=== PATIENT | female | born 1995 | race Hispanic/Latino ===

== ENCOUNTER 2020-10-22 21:42 | Emergency (ER) | payer BC, OTHER ==
[2020-10-22] MEDS ORDERED: IBUPROFEN 600 MG TABLET ONE (22:22)
[2020-10-22] MEDS ORDERED: ACETAMINOPHEN 325 MG TAB ONE (22:22)
[2020-10-22 22:30] LABS: BASOPHILS % (AUTO) 0.4 % (0.0-5.0); EOSINOPHILS % (AUTO) 0.6 % (0.0-8.0); HEMATOCRIT 41.5 % (36-48); LYMPHOCYTES % (AUTO) 33.5 % (21.0-51.0); MEAN CORPUSCULAR HEMOGLOBIN 28.3 pg (27.0-33.0); MEAN CORPUSCULAR HGB CONC 32.5 g/dL (32.0-36.0); MONOCYTES % (AUTO) 4.7 % (3.0-13.0); NEUTROPHILS % (AUTO) 60.4 % (40.0-77.0); PLATELET COUNT (AUTO) 328 K/uL (130-400); RED BLOOD CELL COUNT(AUTO) 4.77 MIL/uL (4.00-5.50)
[2020-10-22 22:33] LABS: APPEARANCE,URINE Clear (CLEAR); BILIRUBIN,URINE Negative (NEGATIVE); COLOR,URINE Yellow (YELLOW); GLUCOSE, URINE (UA) Negative (NEGATIVE); KETONES,URINE Negative (NEGATIVE); LEUKOCYTE ESTERASE ,URINE Negative (NEGATIVE); NITRATE,URINE Negative (NEGATIVE); OCCULT BLOOD,URINE Negative (NEGATIVE); PH,URINE 6.5 (5.0-8.0); PROTEIN,URINE Negative (NEGATIVE)
[2020-10-22 22:35] LABS: HCG,QUAL RESULT NEGATIVE (NEGATIVE)
[2020-10-22 22:40] LABS: CREATININE 0.8 mg/dL (0.5-1.5); POTASSIUM 3.7 mmol/L (3.5-5.1)
== END 2020-10-22 23:42 | disposition home or self-care (01) ==
LOC: EDH 21:42
DX: U07.1 COVID-19 (principal); R06.02 Shortness of breath; Z87.891 Personal history of nicotine dependence
CPT/HCPCS: 36415; 71045; 80048; 81003; 81025; 85025

== ENCOUNTER 2020-11-08 07:48 | Emergency (ER) | payer BC | END 2020-11-08 08:15 | disposition home or self-care (01) | LOC: EDH 07:48 | DX: R07.89 Other chest pain (principal); Z86.19 Personal history of other infectious and parasitic diseases | CPT/HCPCS: 99281 ==

== ENCOUNTER 2020-11-15 08:19 | Emergency (ER) | payer BC ==
[2020-11-15 08:44] LABS: APPEARANCE,URINE Clear (CLEAR); BILIRUBIN,URINE Negative (NEGATIVE); COLOR,URINE Yellow (YELLOW); GLUCOSE, URINE (UA) Negative (NEGATIVE); KETONES,URINE 15 mg/dL (NEGATIVE); LEUKOCYTE ESTERASE ,URINE Negative (NEGATIVE); NITRATE,URINE Negative (NEGATIVE); OCCULT BLOOD,URINE Negative (NEGATIVE); PROTEIN,URINE Negative (NEGATIVE); UROBILINOGEN,URINE 0.2 mg/dL (0.2-1.0)
[2020-11-15 09:00] LABS: BACTERIA,URINE Moderate /HPF (None Seen); RBC,URINE 0-1 /HPF (0-1); WBC,URINE 0-1 /HPF (0-1)
[2020-11-15] MEDS ORDERED: METHYLPREDNISOLONE SOD SUCC 125MG/2ML VIAL ONE (09:42)
== END 2020-11-15 10:52 | disposition home or self-care (01) ==
LOC: EDH 08:19
DX: M54.2 Cervicalgia (principal)
CPT/HCPCS: 71045; 81001; 87088; 96372; 99284; J2930

== ENCOUNTER 2020-11-23 17:47 | Emergency (ER) | payer BC ==
[2020-11-23] MEDS ORDERED: HYDROXYZINE HCL 25 MG TABLET ONE (18:28)
== END 2020-11-23 18:35 | disposition home or self-care (01) ==
LOC: EDH 17:47
DX: H81.399 Other peripheral vertigo, unspecified ear (principal); Z87.891 Personal history of nicotine dependence

== ENCOUNTER 2022-03-22 18:18 | Emergency (ER) | payer BC, OTHER ==
[~2022-03-22] VITALS: Ht 149.9 cm; Wt 72.6 kg
[2022-03-22 18:53] LABS: APPEARANCE,URINE Clear (CLEAR); BILIRUBIN,URINE Negative (NEGATIVE); COLOR,URINE Yellow (YELLOW); GLUCOSE, URINE (UA) Negative (NEGATIVE); KETONES,URINE 40 mg/dL (NEGATIVE); LEUKOCYTE ESTERASE ,URINE Negative (NEGATIVE); NITRATE,URINE Negative (NEGATIVE); OCCULT BLOOD,URINE Negative (NEGATIVE); PH,URINE 7.5 (5.0-8.0); PROTEIN,URINE Negative (NEGATIVE); UROBILINOGEN,URINE 0.2 mg/dL (0.2-1.0)
[2022-03-22 18:56] LABS: HCG,QUAL RESULT NEGATIVE (NEGATIVE)
[2022-03-22] MEDS ORDERED: ONDANSETRON ODT 4MG TAB SL ONE (19:00)
[2022-03-22] MEDS ORDERED: ONDANSETRON ODT 4MG TAB ONE (19:23)
[2022-03-22 19:24] LABS: BASOPHILS % (AUTO) 0.5 % (0.0-5.0); EOSINOPHILS % (AUTO) 1.5 % (0.0-8.0); HEMATOCRIT 43.5 % (36-48); LYMPHOCYTES % (AUTO) 32.9 % (21.0-51.0); MEAN CORPUSCULAR HEMOGLOBIN 28.4 pg (27.0-33.0); MEAN CORPUSCULAR HGB CONC 32.4 g/dL (32.0-36.0); MEAN CORPUSCULAR VOLUME 87.7 fL (79-99); MONOCYTES % (AUTO) 4.3 % (3.0-13.0); NEUTROPHILS % (AUTO) 60.5 % (40.0-77.0); PLATELET COUNT (AUTO) 343 K/uL (130-400); RED BLOOD CELL COUNT(AUTO) 4.96 MIL/uL (4.00-5.50); RED CELL DISTRIBUTION WIDTH 13.6 % (11.0-15.5)
[2022-03-22] MEDS ORDERED: 0.9%NACL 1000ML 1,000 ML IV SCH (19:30)
[2022-03-22 19:32] LABS: POTASSIUM 3.4 mmol/L (3.5-5.1)
[2022-03-22 19:36] LABS: ALBUMIN 4.4 g/dL (3.5-5.0); BILIRUBIN,TOTAL 0.4 mg/dL (0.2-1.0); TOTAL PROTEIN, SERUM 8.6 g/dL (6.0-8.3)
[2022-03-22] MEDS ORDERED: ONDA4TAB10 PO (20:27)
[2022-03-22 21:00] VITALS: BP 124/77
== END 2022-03-22 21:11 | disposition home or self-care (01) ==
LOC: EDH 18:18
DX: A08.4 Viral intestinal infection, unspecified (principal); E86.0 Dehydration; I95.1 Orthostatic hypotension
CPT/HCPCS: 36415; 80053; 81003; 81025; 85025; 96360; 96361

== ENCOUNTER 2022-04-20 15:18 | Emergency (ER) | payer OTHER ==
[~2022-04-20] VITALS: Ht 149.9 cm; Wt 122.5 kg
[~2022-04-20 15:18] MED LIST: ONDA4TAB10 PO
[2022-04-20] MEDS ORDERED: ONDANSETRON ODT 4MG TAB SL ONE (16:00)
[2022-04-20] MEDS ORDERED: KETOROLAC 60 MG VIAL (30MG/ML) IM ONE (16:00)
[2022-04-20] MEDS ORDERED: FIORIT PO (17:38)
[2022-04-20 17:54] VITALS: BP 136/90
== END 2022-04-20 17:55 | disposition home or self-care (01) ==
LOC: EDH 15:18
DX: R51.9 Headache, unspecified (principal); R42 Dizziness and giddiness; K21.9 Gastro-esophageal reflux disease without esophagitis; Z79.1 Long term (current) use of non-steroidal anti-inflammatories (NSAID); Z79.899 Other long term (current) drug therapy
CPT/HCPCS: 70450; 81025; 96372; 99284; J1885

== ENCOUNTER 2023-03-10 06:31 | Emergency (ER) | payer OTHER ==
[~2023-03-10] VITALS: Ht 152.4 cm; Wt 81.2 kg
[~2023-03-10 06:31] MED LIST changes: +FIORIT PO
[2023-03-10 07:12] LABS: APPEARANCE,URINE CLOUDY (CLEAR); BILIRUBIN,URINE NEGATIVE (NEGATIVE); COLOR,URINE YELLOW (YELLOW); GLUCOSE, URINE (UA) NEGATIVE (NEGATIVE); KETONES,URINE NEGATIVE (NEGATIVE); LEUKOCYTE ESTERASE ,URINE 250 Leu/uL (NEGATIVE); NITRATE,URINE NEGATIVE (NEGATIVE); OCCULT BLOOD,URINE LARGE (NEGATIVE); PH,URINE 5.5 (5.0-8.0); PROTEIN,URINE 70 mg/dL (NEGATIVE); UROBILINOGEN,URINE 0.2 mg/dL (0.2-1.0)
[2023-03-10 07:31] LABS: BACTERIA,URINE MOD /HPF (None Seen); MUCUS,URINE RARE LPF (None Seen); RBC,URINE TNTC /HPF (0-1); SQUAMOUS EPITHELIAL CELL,UR FEW /HPF (0-2); TRANSITIONAL EPI CELLS,URINE FEW /HPF (None Seen); WBC,URINE >100 /HPF (0-1)
[2023-03-10 08:12] VITALS: BP 124/71
[2023-03-10] MEDS ORDERED: PHEN-847 PO (08:28)
[2023-03-10] MEDS ORDERED: MACR100 PO (08:28)
[2023-03-10] MEDS ORDERED: NITROFURANTOIN MONOHYD/M-CRYST 100 MG CAPSULE PO ONE (08:30)
[2023-03-10] MEDS ORDERED: PHENAZOPYRIDINE HCL 200 MG TABLET PO ONE (08:30)
== END 2023-03-10 08:43 | disposition home or self-care (01) ==
LOC: EDH 06:31
DX: N30.01 Acute cystitis with hematuria (principal)
CPT/HCPCS: 81001; 81025; 87077; 87088; 87186

== ENCOUNTER 2024-05-06 08:26 | Emergency (ER) | payer BC ==
[~2024-05-06] VITALS: Ht 152.4 cm; Wt 83.0 kg
[~2024-05-06 08:26] MED LIST changes: +MACR100 PO; +ONDA-243 PO; -ONDA4TAB10 PO; +PHEN-847 PO
[2024-05-06 09:05] LABS: BASOPHILS # (AUTO) 0.03 K/uL (0.00-0.20); BASOPHILS % (AUTO) 0.4 % (0.0-5.0); EOSINOPHILS % (AUTO) 1.5 % (0.0-8.0); HEMATOCRIT 40.5 % (36-48); IMMATURE GRANULOCYTE ABSOLUTE 0.02 K/uL (0-1); LYMPHOCYTES # (AUTO) 1.3 K/uL (1.0-4.8); LYMPHOCYTES % (AUTO) 18.8 % (21.0-51.0); MEAN CORPUSCULAR HEMOGLOBIN 28.6 pg (27.0-33.0); MEAN CORPUSCULAR HGB CONC 33.6 g/dL (32.0-36.0); MEAN CORPUSCULAR VOLUME 85.1 fL (79-99); MONOCYTES # (AUTO) 0.2 K/uL (0.1-1.0); MONOCYTES % (AUTO) 3.1 % (3.0-13.0); NEUTROPHILS # (AUTO) 5.1 K/uL (1.8-7.7); NEUTROPHILS % (AUTO) 75.9 % (40.0-77.0); PLATELET COUNT (AUTO) 326 K/uL (130-400); RED BLOOD CELL COUNT(AUTO) 4.76 MIL/uL (4.00-5.50); WHITE BLOOD COUNT (AUTO) 6.7 K/uL (4.8-10.8)
[2024-05-06 09:10] LABS: APPEARANCE,URINE CLEAR (CLEAR); BILIRUBIN,URINE NEGATIVE (NEGATIVE); COLOR,URINE COLORLESS (YELLOW); GLUCOSE, URINE (UA) NEGATIVE (NEGATIVE); KETONES,URINE NEGATIVE (NEGATIVE); LEUKOCYTE ESTERASE ,URINE NEGATIVE Leu/uL (NEGATIVE); NITRATE,URINE NEGATIVE (NEGATIVE); OCCULT BLOOD,URINE NEGATIVE (NEGATIVE); PH,URINE 7.5 (5.0-8.0); PROTEIN,URINE NEGATIVE (NEGATIVE); UROBILINOGEN,URINE 0.2 mg/dL (0.2-1.0)
[2024-05-06 09:13] LABS: CREATININE 0.8 mg/dL (0.5-1.0); POTASSIUM 3.9 mmol/L (3.5-5.1)
[2024-05-06 09:14] LABS: ADD UA MICROSCOPIC NO; HCG,QUALITATIVE URINE NEGATIVE (NEGATIVE)
[2024-05-06 09:18] LABS: ALBUMIN 3.9 g/dL (3.5-5.0); BILIRUBIN,TOTAL 0.3 mg/dL (0.2-1.0); TOTAL PROTEIN, SERUM 7.6 g/dL (6.0-8.3)
[2024-05-06] MEDS ORDERED: FLUT9.9S NS (10:37)
[2024-05-06 10:41] VITALS: BP 128/81; PULSE 87; RESP 18; O2SAT 99
== END 2024-05-06 10:50 | disposition home or self-care (01) ==
LOC: EDH 08:26
DX: J30.9 Allergic rhinitis, unspecified (principal); E86.0 Dehydration; R73.9 Hyperglycemia, unspecified; F41.9 Anxiety disorder, unspecified; K21.9 Gastro-esophageal reflux disease without esophagitis; Z79.899 Other long term (current) drug therapy; Z98.890 Other specified postprocedural states
CPT/HCPCS: 36415; 80053; 81003; 81025; 85025

== ENCOUNTER 2024-07-17 16:24 | Emergency (ER) | payer BC ==
[~2024-07-17] VITALS: Ht 152.4 cm; Wt 81.6 kg
[~2024-07-17 16:24] MED LIST changes: +FLUT9.9S NS
[2024-07-17 16:58] LABS: BASOPHILS # (AUTO) 0.05 K/uL (0.00-0.20); BASOPHILS % (AUTO) 0.6 % (0.0-5.0); EOSINOPHILS % (AUTO) 3.4 % (0.0-8.0); HEMATOCRIT 44.3 % (36-48); IMMATURE GRANULOCYTE ABSOLUTE 0.02 K/uL (0-1); LYMPHOCYTES # (AUTO) 2.6 K/uL (1.0-4.8); LYMPHOCYTES % (AUTO) 28.5 % (21.0-51.0); MEAN CORPUSCULAR HEMOGLOBIN 28.3 pg (27.0-33.0); MEAN CORPUSCULAR HGB CONC 31.8 g/dL (32.0-36.0); MEAN CORPUSCULAR VOLUME 88.8 fL (79-99); MONOCYTES # (AUTO) 0.4 K/uL (0.1-1.0); MONOCYTES % (AUTO) 4.7 % (3.0-13.0); NEUTROPHILS # (AUTO) 5.6 K/uL (1.8-7.7); NEUTROPHILS % (AUTO) 62.6 % (40.0-77.0); PLATELET COUNT (AUTO) 321 K/uL (130-400); RED BLOOD CELL COUNT(AUTO) 4.99 MIL/uL (4.00-5.50); RED CELL DISTRIBUTION WIDTH 12.5 % (11.0-15.5); WHITE BLOOD COUNT (AUTO) 8.9 K/uL (4.8-10.8)
[2024-07-17 16:59] LABS: APPEARANCE,URINE CLEAR (CLEAR); BILIRUBIN,URINE NEGATIVE (NEGATIVE); COLOR,URINE YELLOW (YELLOW); GLUCOSE, URINE (UA) NEGATIVE (NEGATIVE); KETONES,URINE 5 mg/dL (NEGATIVE); LEUKOCYTE ESTERASE ,URINE NEGATIVE Leu/uL (NEGATIVE); NITRATE,URINE NEGATIVE (NEGATIVE); PH,URINE 5.5 (5.0-8.0); PROTEIN,URINE 10 mg/dL (NEGATIVE); UROBILINOGEN,URINE 0.2 mg/dL (0.2-1.0)
[2024-07-17 17:01] LABS: ADD UA MICROSCOPIC YES
[2024-07-17 17:06] LABS: BACTERIA,URINE RARE /HPF (None Seen); MUCUS,URINE RARE LPF (None Seen); SQUAMOUS EPITHELIAL CELL,UR FEW /HPF (0-2); UNCLASSIFIED CRYSTAL 1 /HPF (None Seen)
[2024-07-17 17:07] LABS: POTASSIUM 3.6 mmol/L (3.5-5.1)
[2024-07-17 17:13] LABS: ALBUMIN 4.2 g/dL (3.5-5.0); BILIRUBIN,TOTAL 0.5 mg/dL (0.2-1.0); TOTAL PROTEIN, SERUM 8.2 g/dL (6.0-8.3)
[2024-07-17] MEDS: PANTOPRAZOLE 40 MG/VIAL IVP ONE (17:40)
[2024-07-17] MEDS: MAG/ALUM/SIMETH 30 ML UDCUP PO ONE (17:40)
[2024-07-17] MEDS: DICYCLOMINE HCL 10 MG/5 ML ML PO ONE (17:40)
[2024-07-17] MEDS: LIDOCAINE HCL 2% VISCOUS 15 ML UDCUP PO ONE (17:40)
[2024-07-17] MEDS ORDERED: SUCR1TAB28 PO (18:58)
[2024-07-17] MEDS ORDERED: OMEP40CA21 PO (18:58)
[2024-07-17 19:00] VITALS: BP 114/61; PULSE 70; RESP 20; TEMP 98.1; O2SAT 99
== END 2024-07-17 19:08 | disposition home or self-care (01) ==
LOC: EDH 16:24
DX: K29.00 Acute gastritis without bleeding (principal); K21.9 Gastro-esophageal reflux disease without esophagitis; Z79.899 Other long term (current) drug therapy
CPT/HCPCS: 99284; 96374; 80053; 83690; 85025; 81001; 36415; J2470

== ENCOUNTER 2024-09-10 20:50 | Emergency (ER) | payer BC ==
[~2024-09-10] VITALS: Ht 152.4 cm; Wt 80.7 kg
[~2024-09-10 20:50] MED LIST changes: +OMEP40CA21 PO; +SUCR1TAB28 PO
[2024-09-10 21:32] LABS: APPEARANCE,URINE CLOUDY (CLEAR); BILIRUBIN,URINE NEGATIVE (NEGATIVE); COLOR,URINE YELLOW (YELLOW); GLUCOSE, URINE (UA) NEGATIVE (NEGATIVE); KETONES,URINE NEGATIVE (NEGATIVE); LEUKOCYTE ESTERASE ,URINE 75 Leu/uL (NEGATIVE); NITRATE,URINE NEGATIVE (NEGATIVE); PROTEIN,URINE 10 mg/dL (NEGATIVE); UROBILINOGEN,URINE 3 mg/dL (0.2-1.0)
[2024-09-10 21:35] LABS: ADD UA MICROSCOPIC YES
[2024-09-10 21:37] LABS: HCG,QUALITATIVE URINE NEGATIVE (NEGATIVE)
[2024-09-10 21:51] LABS: MUCUS,URINE FEW LPF (None Seen); SQUAMOUS EPITHELIAL CELL,UR FEW /HPF (0-2)
[2024-09-10] MEDS ORDERED: MACR100 PO (22:41)
[2024-09-10] MEDS: cefTRIAXone 1G VIAL IM ONE (22:58)
[2024-09-10] MEDS: LIDOCAINE HCL 1% 20 ML VIAL ONE (23:04)
[2024-09-10 23:05] VITALS: BP 128/73; PULSE 89; RESP 20; TEMP 98.8; O2SAT 100
== END 2024-09-10 23:23 | disposition home or self-care (01) ==
LOC: EDH 20:50
DX: N39.0 Urinary tract infection, site not specified (principal); K21.9 Gastro-esophageal reflux disease without esophagitis; Z79.899 Other long term (current) drug therapy
CPT/HCPCS: 99284; 87086 ×2; 87186; 81001; 81025; 96372; J0696

== ENCOUNTER 2024-09-24 19:25 | Emergency (ER) | payer BC ==
[~2024-09-24] VITALS: Ht 152.4 cm; Wt 79.8 kg
[2024-09-24 19:27] VITALS: BP 140/90; PULSE 98; RESP 16; TEMP 98.1
[2024-09-24 19:53] LABS: APPEARANCE,URINE CLOUDY (CLEAR); BILIRUBIN,URINE NEGATIVE (NEGATIVE); COLOR,URINE LIGHT-YELLOW (YELLOW); GLUCOSE, URINE (UA) NEGATIVE (NEGATIVE); KETONES,URINE NEGATIVE (NEGATIVE); LEUKOCYTE ESTERASE ,URINE NEGATIVE Leu/uL (NEGATIVE); NITRATE,URINE NEGATIVE (NEGATIVE); PROTEIN,URINE 10 mg/dL (NEGATIVE)
[2024-09-24 20:08] LABS: HCG,QUALITATIVE URINE NEGATIVE (NEGATIVE)
[2024-09-24 20:09] LABS: ADD UA MICROSCOPIC YES
[2024-09-24 20:12] LABS: MUCUS,URINE RARE LPF (None Seen); SQUAMOUS EPITHELIAL CELL,UR MOD /HPF (0-2)
[2024-09-24] MEDS ORDERED: MULT-1367 PO (20:18)
[2024-09-24] MEDS ORDERED: FISH12002 PO (20:18)
[2024-09-24] MEDS ORDERED: ATOR20TA65 PO (20:18)
[2024-09-24] MEDS ORDERED: AMLO2.5T4 PO (20:18)
[2024-09-24] MEDS ORDERED: HYDR500C2 PO (20:18)
[2024-09-24] MEDS ORDERED: LIDOP TP (20:18)
[2024-09-24] MEDS ORDERED: ERGO400C PO (20:18)
[2024-09-24] MEDS ORDERED: OXYB10TA30 PO (20:18)
[2024-09-24] MEDS ORDERED: ASPI-1443 PO (20:18)
[2024-09-24] MEDS ORDERED: ACET-66 PO (20:18)
--- NOTE | 2024-09-24 20:23 | ERN ---
General Chief Complaint: Urinary Frequency Stated Complaint: URINARY FREQUENCY Time Seen by MD: 19:28 Time Seen by Midlevel: 19:28 Source: patient History of Present Illness Initial Comments Patient is a 29-year-old female with no significant past medical history presenting to the emergency department with urinary frequency. Patient was seen in our emergency department 15 days ago and diagnosed with a urinary tract infection. She was given a five day course of Macrobid that she states she completed fully. She follow up with your primary care doctor who repeated a urinalysis and states her infection cleared up. Today she does report an increase in urinary frequency. She believes she may have an overactive bladder but wanted to make sure it was in another urinary tract infection. She denies any dysuria, hematuria, or any other symptoms at this time. She states the only thing that is concerning her is her urinary frequency. Allergies: Coded Allergies: No Known Drug Allergies (Unverified Allergy, Unknown, 11/08/20) Home Meds Active Scripts Nitrofurantoin/Nitrofuran Mac (Macrobid) 100 Mg Cap, 1 CAP PO BID for 7 Days, #14 CAP 0 Refills Prov:FRANCISCO TRUJILLO 09/10/24 Omeprazole (Omeprazole) 40 Mg Capsule.dr, 40 MG PO DAILY, #30 CAP Prov:LEIF JIM NP 07/17/24 Sucralfate (Carafate) 1 Gram Tablet, 1 GM PO ACHS for 10 Days, #40 TAB Prov:LEIF JIM NP 07/17/24 Fluticasone Propionate (Flonase Allergy Relief) 50 Mcg/Actuation [place].susp, 1 INH NS BID PRN for allergy, #1 INHALER 0 Refills Prov:SELINA TREJO MD 05/06/24 Phenazopyridine HCl (Pyridium) 200 Mg Tab, 200 MG PO TIDPC PRN for PAIN, #10 TAB 0 Refills TAKE WITH FOOD TO PREVENT STOMACH UPSET. Prov:SELINA TREJO MD 03/10/23 Nitrofurantoin/Nitrofuran Mac (Macrobid) 100 Mg Cap, 1 CAP PO BID for 7 Days, #14 CAP 0 Refills Prov:SELINA TREJO MD 03/10/23 Butalb/Acetaminophen/Caffeine (Fioricet) 1 Tab Tab, 1 TAB PO QID, #30 TAB Prov:DESIRAE VELARDE MD 04/20/22 Ondansetron (Ondansetron Odt) 4 Mg Tab.rapdis, 4 MG PO TID, #21 TAB Prov:DANNY PRESSLEY 03/22/22 Reported Medications Lidocaine (Lidoderm Patch 5%) 5 % Patch, 1 PATCH TP DAILY for 30 Days, #30 PATCH 0 Refills may wear up to 12 hours 09/24/24 Cholecalciferol (Vitamin D3) (Vitamin D3) 10 Mcg (400 Unit) Capsule, 1 CAP PO DAILY for 30 Days, #30 CAP 0 Refills 09/24/24 Oxybutynin Chloride (Oxybutynin Chloride ER) 10 Mg Tab.er.24, 1 TAB PO DAILY for 30 Days, #30 TAB 0 Refills 09/24/24 Fish Oil/Borage/Flax/Om3,6,9#1 ([place] 3-6-9 1,200 mg Softgel) 1,200 Mg Capsule, 1 CAP PO DAILY for 30 Days, #30 CAP 0 Refills 09/24/24 Acetaminophen (Tylenol) 500 Mg Tab, 1 TAB PO Q6HPRN PRN for pain or fever for 15 Days, #60 TAB 0 Refills 09/24/24 Hydroxyurea (Hydroxyurea) 500 Mg Capsule, 1 CAP PO DAILY for 30 Days, #30 CAP 0 Refills 09/24/24 Multivitamin (Multivitamin) 1 Each Tablet, 1 TAB PO DAILY for 30 Days, #30 TAB 0 Refills 09/24/24 Atorvastatin Calcium (Atorvastatin Calcium) 20 Mg Tablet, 1 TAB PO DAILY for 30 Days, #30 TAB 0 Refills 09/24/24 Aspirin (Aspirin EC) 81 Mg Tablet.dr, 1 TAB PO DAILY for 30 Days, #30 TAB 0 Refills 09/24/24 Amlodipine Besylate (Amlodipine Besylate) 2.5 Mg Tablet, 1 TAB PO DAILY for 30 Days, #30 TAB 0 Refills 09/24/24 Past Medical History Past Medical History: GERD, UTI Medical History Other: VERTIGO Past Surgical History: None Family History Family History: Negative Social History Social History: Negative, Lives with family Female( History) History: Not Applicable ROS Dictation CONSTITUTIONAL: Negative except for HPI HEAD/FACE: Negative except for HPI EENT: Negative except for HPI RESPIRATORY: Negative except for HPI GASTROINTESTINAL/ABDOMINAL: Negative except for HPI GENITOURINARY: Negative except for HPI MUSCULOSKELETAL: Negative except for HPI INTEGUMENTARY: Negative except for HPI NEUROLOGICAL/PSYCH: Negative except for HPI HEMATOLOGIC/LYMPHATIC: Negative except for HPI All Systems Negative, Except as noted above. 13 point review of systems assessed and all negative except for above. Physical Exam Physical Exam Dictation Vital Signs reviewed General Appearance: Alert, oriented x 3, no acute distress, well developed, nourished. Head and Face: non-traumatic. Eyes: PERRL, pink conjunctivas, eyelid no trauma, anterior chamber with arcus senilis. Ears: Pinnas intact and no signs of trauma or erythema ear canals clear and no discharge TM no erythema Nose: No discharge, no bleeding. Oropharynx: Mouth normal, tongue pink, pharynx clear,no erythema, tonsils no exudates, no abscesses noted, mucous membrane moist Neck: Supple, non-tender, no thyromegaly, no masses, no JVD, no bruits Breast:Deferred Chest:No tenderness, no crepitus, no paradoxical movement, no retractions Lungs:Clear, well-ventilated, symmetric, no rales, no wheezing, no rhonchi, no stridor, good breath sounds bilaterally Heart: Regular rate, regular rhythm, no murmur, no gallops Vascular: no peripheral edema, Abdomen: Soft, positive bowel sounds, nondistended, no guarding, nontender, no rebound, no masses no hepatomegaly, no splenomegaly, no Stein's sign, no hernias. Rectal: Deferred Genital: Deferred Neurological: Normal speech, motor function intact, sensory function intact Musculoskeletal: Neck nontender, full range of motion, back nontender, full range of motion, Extremities: nontender, full range of motion Skin: Color pink, dry, no turgor, no rash, no lacerations, no abrasions, no contusions. Lymphatic: Deferred Results Laboratory and Microbiology Lab and Micro Result Laboratory Tests Test 09/24/24 19:30 Urine Color LIGHT-YELLOW (YELLOW) Urine Appearance CLOUDY (CLEAR) H Urine pH 6.0 (5.0-8.0) Urine Specific [place] 1.031 (1.001-1.031) Urine Protein 10 mg/dL (NEGATIVE) H Urine Glucose (UA) NEGATIVE mg/dL (NEGATIVE) Urine Ketones NEGATIVE mg/dL (NEGATIVE) Urine Occult Blood +- (TRACE) (NEGATIVE) H Urine Nitrate NEGATIVE (NEGATIVE) Urine Bilirubin NEGATIVE mg/dL (NEGATIVE) Urine Urobilinogen 2.0 mg/dL (0.2-1.0) H Urine Leukocyte Esterase NEGATIVE [place]/uL Urine RBC 11-25 /HPF (0-1) H Urine WBC 2-5 /HPF (0-1) H Urine Squamous Epithelial Cells MOD /HPF (0-2) Urine Bacteria None /HPF (None Seen) Urine HCG, Qualitative NEGATIVE (NEGATIVE) Labs Reviewed?: Yes MDM MDM: Patient is a 29-year-old female with no significant past medical history presenting to the emergency department with urinary frequency. Patient was seen in our emergency department 15 days ago and diagnosed with a urinary tract infection. She was given a five day course of Macrobid that she states she completed fully. She follow up with your primary care doctor who repeated a urinalysis and states her infection cleared up. Today she does report an increase in urinary frequency. She believes she may have an overactive bladder but wanted to make sure it was in another urinary tract infection. She denies any dysuria, hematuria, or any other symptoms at this time. She states the only thing that is concerning her is her urinary frequency. On physical examination patient is in no acute distress. A urinalysis was obtained which does not reveal any evidence of infection. Given patient's clinical presentation it appears she may have an overactive bladder. She was given a referral to outpatient Urology for outpatient evaluation. Patient states she will be following up with them next week. Return precautions discussed Differential diagnosis: Urinary tract infection, , overactive bladder There are no social concerns with this patient. Prescription drug management Prescriptions will include: None Medical management and examination interpretation discussions were had by me with other qualified healthcare professionals as indicated for the patient's care. ED Course Orders Procedure Category Date Status Time Urinalysis Profile LAB 09/24/24 Complete 19:28 ,Urine Test LAB 09/24/24 Complete 19:28 Vital Signs Date Time Temp Pulse Resp B/P (MAP) Pulse Ox O2 Delivery O2 Flow Rate FiO2 09/24/24 19:27 98.1 98 16 140/90 100 Room Air DX & DISP Disposition: Discharge Departure Impression: Primary Impression: Urinary frequency Condition: Stable Additional Instructions: Your urinalysis is negative for infection today. Your test was negative as well. You will need to follow up with a urologist for outpatient evaluation as this may be an overactive bladder. Return to the ER for any new or worsening symptoms. Referrals: JESUS ARBOLEDA MD Time of Disposition: 20:20 I have reviewed the case, and I agree with, Diagnosis and Plan I performed the substantive portion of the visit. I have reviewed and personally made and approve the management plan that is documented in the note by myself or the JIMBO. I acknowledge for responsibility for the patient's management plan. FRANCISCO TRUJILLO Sep 24, 2024 20:23
== END 2024-09-24 20:28 | disposition home or self-care (01) ==
LOC: EDH 19:25
DX: R35.0 Frequency of micturition (principal); K21.9 Gastro-esophageal reflux disease without esophagitis; Z79.64 Long term (current) use of myelosuppressive agent; Z79.82 Long term (current) use of aspirin; Z79.899 Other long term (current) drug therapy
CPT/HCPCS: 81001; 81025; 99283

== ENCOUNTER 2025-02-19 14:27 | Emergency (ER) | payer BC ==
[~2025-02-19] VITALS: Ht 152.4 cm; Wt 80.7 kg
[~2025-02-19 14:27] MED LIST changes: +ACET-66 PO; +AMLO2.5T4 PO; +ASPI-1443 PO; +ATOR20TA65 PO; +ERGO400C PO; +FISH12002 PO; +HYDR500C2 PO; +LIDOP TP; +MULT-1367 PO; +OXYB10TA30 PO
[2025-02-19 14:59] LABS: APPEARANCE,URINE CLEAR (CLEAR); BILIRUBIN,URINE NEGATIVE (NEGATIVE); COLOR,URINE LIGHT-YELLOW (YELLOW); GLUCOSE, URINE (UA) NEGATIVE (NEGATIVE); KETONES,URINE NEGATIVE (NEGATIVE); LEUKOCYTE ESTERASE ,URINE NEGATIVE Leu/uL (NEGATIVE); NITRATE,URINE NEGATIVE (NEGATIVE); OCCULT BLOOD,URINE LARGE (NEGATIVE); PH,URINE 6.5 (5.0-8.0); PROTEIN,URINE NEGATIVE (NEGATIVE); UROBILINOGEN,URINE 0.2 mg/dL (0.2-1.0)
[2025-02-19 15:00] LABS: ADD UA MICROSCOPIC YES
[2025-02-19 15:02] LABS: MUCUS,URINE RARE LPF (None Seen); SQUAMOUS EPITHELIAL CELL,UR RARE /HPF (0-2); WBC,URINE 0-1 /HPF (0-1)
[2025-02-19] MEDS: 0.9%NACL 1000ML 1,000 ML IV ONE (15:16)
[2025-02-19] MEDS: FAMOTIDINE 20MG VIAL IV ONE (15:16)
[2025-02-19] MEDS: ondanSETRON 4MG INJ IVP ONE (15:16)
[2025-02-19 15:48] LABS: BASOPHILS # (AUTO) 0.05 K/uL (0.00-0.20); BASOPHILS % (AUTO) 0.5 % (0.0-5.0); EOSINOPHILS # (AUTO) 0.16 K/uL (0.00-0.70); EOSINOPHILS % (AUTO) 1.5 % (0.0-8.0); HEMATOCRIT 42.3 % (36-48); IMMATURE GRANULOCYTE ABSOLUTE 0.03 K/uL (0-1); LYMPHOCYTES % (AUTO) 38.4 % (21.0-51.0); MEAN CORPUSCULAR HEMOGLOBIN 28.9 pg (27.0-33.0); MEAN CORPUSCULAR HGB CONC 32.6 g/dL (32.0-36.0); MEAN CORPUSCULAR VOLUME 88.5 fL (79-99); MONOCYTES # (AUTO) 0.4 K/uL (0.1-1.0); MONOCYTES % (AUTO) 4.2 % (3.0-13.0); NEUTROPHILS # (AUTO) 5.7 K/uL (1.8-7.7); NEUTROPHILS % (AUTO) 55.1 % (40.0-77.0); PLATELET COUNT (AUTO) 339 K/uL (130-400); RED BLOOD CELL COUNT(AUTO) 4.78 MIL/uL (4.00-5.50); RED CELL DISTRIBUTION WIDTH 12.5 % (11.0-15.5); WHITE BLOOD COUNT (AUTO) 10.4 K/uL (4.8-10.8)
[2025-02-19 16:02] LABS: ALBUMIN 3.7 g/dL (3.5-5.0); BILIRUBIN,DIRECT 0.1 mg/dL (0.0-0.3); BILIRUBIN,TOTAL 0.3 mg/dL (0.2-1.0); CREATININE 0.9 mg/dL (0.5-1.0); POTASSIUM 3.1 mmol/L (3.5-5.1); TOTAL PROTEIN, SERUM 7.5 g/dL (6.0-8.3)
--- NOTE | 2025-02-19 16:56 | ERN ---
General Chief Complaint: Abdominal Pain Stated Complaint: VOMITING, ABDOMINAL PAIN Time Seen by MD: 14:27 Time Seen by Midlevel: 14:27 Source: patient History of Present Illness Initial Comments The patient is a 29-year-old female with no significant past medical history presenting to the emergency department for evaluation of nausea vomiting and diffuse abdominal pain that started yesterday after she ate fish. No other symptoms reported. Patient denies being . She reports taking 40 mg of Pepcid yesterday which temporarily improved her symptoms. Allergies: Coded Allergies: No Known Drug Allergies (Unverified Allergy, Unknown, 11/08/20) Home Meds Active Scripts Nitrofurantoin/Nitrofuran Mac (Macrobid) 100 Mg Cap, 1 CAP PO BID for 7 Days, #14 CAP 0 Refills Prov:FRANCISCO TRUJILLO 09/10/24 Omeprazole (Omeprazole) 40 Mg Capsule.dr, 40 MG PO DAILY, #30 CAP Prov:LEIF JIM NP 07/17/24 Sucralfate (Carafate) 1 Gram Tablet, 1 GM PO ACHS for 10 Days, #40 TAB Prov:LEIF JIM NP 07/17/24 Fluticasone Propionate (Flonase Allergy Relief) 50 Mcg/Actuation [place].susp, 1 INH NS BID PRN for allergy, #1 INHALER 0 Refills Prov:SELINA TREJO MD 05/06/24 Phenazopyridine HCl (Pyridium) 200 Mg Tab, 200 MG PO TIDPC PRN for PAIN, #10 TAB 0 Refills TAKE WITH FOOD TO PREVENT STOMACH UPSET. Prov:SELINA TREJO MD 03/10/23 Nitrofurantoin/Nitrofuran Mac (Macrobid) 100 Mg Cap, 1 CAP PO BID for 7 Days, #14 CAP 0 Refills Prov:SELINA TREJO MD 03/10/23 Butalb/Acetaminophen/Caffeine (Fioricet) 1 Tab Tab, 1 TAB PO QID, #30 TAB Prov:DESIRAE VELARDE MD 04/20/22 Ondansetron (Ondansetron Odt) 4 Mg Tab.rapdis, 4 MG PO TID, #21 TAB Prov:DANNY PRESSLEY 03/22/22 Reported Medications Lidocaine (Lidoderm Patch 5%) 5 % Patch, 1 PATCH TP DAILY for 30 Days, #30 PATCH 0 Refills may wear up to 12 hours 09/24/24 Cholecalciferol (Vitamin D3) (Vitamin D3) 10 Mcg (400 Unit) Capsule, 1 CAP PO D AILY for 30 Days, #30 CAP 0 Refills 09/24/24 Oxybutynin Chloride (Oxybutynin Chloride ER) 10 Mg Tab.er.24, 1 TAB PO DAILY for 30 Days, #30 TAB 0 Refills 09/24/24 Fish Oil/Borage/Flax/Om3,6,9#1 ([place] 3-6-9 1,200 mg Softgel) 1,200 Mg Capsule, 1 CAP PO DAILY for 30 Days, #30 CAP 0 Refills 09/24/24 Acetaminophen (Tylenol) 500 Mg Tab, 1 TAB PO Q6HPRN PRN for pain or fever for 15 Days, #60 TAB 0 Refills 09/24/24 Hydroxyurea (Hydroxyurea) 500 Mg Capsule, 1 CAP PO DAILY for 30 Days, #30 CAP 0 Refills 09/24/24 Multivitamin (Multivitamin) 1 Each Tablet, 1 TAB PO DAILY for 30 Days, #30 TAB 0 Refills 09/24/24 Atorvastatin Calcium (Atorvastatin Calcium) 20 Mg Tablet, 1 TAB PO DAILY for 30 Days, #30 TAB 0 Refills 09/24/24 Aspirin (Aspirin EC) 81 Mg Tablet.dr, 1 TAB PO DAILY for 30 Days, #30 TAB 0 Refills 09/24/24 Amlodipine Besylate (Amlodipine Besylate) 2.5 Mg Tablet, 1 TAB PO DAILY for 30 Days, #30 TAB 0 Refills 09/24/24 Past Medical History Past Medical History: GERD, UTI Medical History Other: VERTIGO Past Surgical History: None Family History Family History: Negative Social History Social History: Negative, Lives with family Female( History) History: Not Applicable LMP: Feb 19, 2025 : 0 Para: 0 Aborts: 0 ROS Dictation CONSTITUTIONAL: Negative except for HPI HEAD/FACE: Negative except for HPI EENT: Negative except for HPI RESPIRATORY: Negative except for HPI GASTROINTESTINAL/ABDOMINAL: Negative except for HPI GENITOURINARY: Negative except for HPI MUSCULOSKELETAL: Negative except for HPI INTEGUMENTARY: Negative except for HPI NEUROLOGICAL/PSYCH: Negative except for HPI HEMATOLOGIC/LYMPHATIC: Negative except for HPI All Systems Negative, Except as noted above. 13 point review of systems assessed and all negative except for above. Physical Exam Physical Exam Dictation Vital Signs reviewed General Appearance: Alert, oriented x 3, no acute distress, well developed, nourished. Head and Face: non-traumatic. Eyes: PERRL, pink conjunctivas, eyelid no trauma, anterior chamber with arcus senilis. Ears: Pinnas intact and no signs of trauma or erythema ear canals clear and no discharge TM no erythema Nose: No discharge, no bleeding. Oropharynx: Mouth normal, tongue pink, pharynx clear,no erythema, tonsils no exudates, no abscesses noted, mucous membrane moist Neck: Supple, non-tender, no thyromegaly, no masses, no JVD, no bruits Breast:Deferred Chest:No tenderness, no crepitus, no paradoxical movement, no retractions Lungs:Clear, well-ventilated, symmetric, no rales, no wheezing, no rhonchi, no stridor, good breath sounds bilaterally Heart: Regular rate, regular rhythm, no murmur, no gallops Vascular: no peripheral edema, Abdomen: Soft, positive bowel sounds, nondistended, no guarding, nontender, no rebound, no masses no hepatomegaly, no splenomegaly, no Stein's sign, no hernias. Rectal: Deferred Genital: Deferred Neurological: Normal speech, motor function intact, sensory function intact Musculoskeletal: Neck nontender, full range of motion, back nontender, full range of motion, Extremities: nontender, full range of motion Skin: Color pink, dry, no turgor, no rash, no lacerations, no abrasions, no contusions. Lymphatic: Deferred Results Laboratory and Microbiology Lab and Micro Result Laboratory Tests Test 02/19/25 14:52 02/19/25 15:42 Urine Color LIGHT-YELLOW (YELLOW) Urine Appearance CLEAR (CLEAR) Urine pH 6.5 (5.0-8.0) Urine Specific [place] 1.012 (1.001-1.031) Urine Protein NEGATIVE mg/dL (NEGATIVE) Urine Glucose (UA) NEGATIVE mg/dL (NEGATIVE) Urine Ketones NEGATIVE mg/dL (NEGATIVE) Urine Occult Blood LARGE (NEGATIVE) H Urine Nitrate NEGATIVE (NEGATIVE) Urine Bilirubin NEGATIVE mg/dL (NEGATIVE) Urine Urobilinogen 0.2 mg/dL (0.2-1.0) Urine Leukocyte Esterase NEGATIVE [place]/uL Urine RBC 11-25 /HPF (0-1) H Urine WBC 0-1 /HPF (0-1) Urine Squamous Epithelial Cells RARE /HPF (0-2) Urine Bacteria None /HPF (None Seen) White Blood Count 10.4 K/uL (4.8-10.8) Red Blood Count 4.78 MIL/uL (4.00-5.50) Hemoglobin 13.8 g/dL (12.0-16.0) Hematocrit 42.3 % (36-48) Mean Corpuscular Volume 88.5 fL (79-99) Mean Corpuscular Hemoglobin 28.9 pg (27.0-33.0) Mean Corpuscular Hemoglobin Concent 32.6 g/dL (32.0-36.0) Red Cell Distribution Width 12.5 % (11.0-15.5) Platelet Count 339 K/uL (130-400) Mean Platelet Volume 9.7 fL (7.5-10.5) Immature Granulocyte % (Auto) 0.3 % (0-1) Neutrophils (%) (Auto) 55.1 % (40.0-77.0) Lymphocytes (%) (Auto) 38.4 % (21.0-51.0) Monocytes (%) (Auto) 4.2 % (3.0-13.0) Eosinophils (%) (Auto) 1.5 % (0.0-8.0) Basophils (%) (Auto) 0.5 % (0.0-5.0) Neutrophils # (Auto) 5.7 K/uL (1.8-7.7) Lymphocytes # (Auto) 4.0 K/uL (1.0-4.8) Monocytes # (Auto) 0.4 K/uL (0.1-1.0) Eosinophils # (Auto) 0.16 K/uL (0.00-0.70) Basophils # (Auto) 0.05 K/uL (0.00-0.20) Absolute Immature Granulocyte (auto 0.03 K/uL (0-1) Nucleated Red Blood Cells 0.0 % (0.0-0.19) Sodium Level 140 mmol/L (136-145) Potassium Level 3.1 mmol/L (3.5-5.1) L Chloride Level 103 mmol/L (101-111) Carbon Dioxide Level 28 mmol/L (21-32) Blood Urea Nitrogen 15 mg/dL (7-18) Creatinine 0.9 mg/dL (0.5-1.0) Glomerular Filtration Rate Calc 88 mL/min (>90) Random Glucose 120 mg/dL (70-105) H Total Calcium 8.7 mg/dL (8.5-10.1) Total Bilirubin 0.3 mg/dL (0.2-1.0) Direct Bilirubin 0.1 mg/dL (0.0-0.3) Aspartate Amino Transf (AST/SGOT) 21 U/L (10-37) Alanine Aminotransferase (ALT/SGPT) 76 U/L (12-78) Alkaline Phosphatase 55 U/L (50-136) Total Protein 7.5 g/dL (6.0-8.3) Albumin 3.7 g/dL (3.5-5.0) Lipase 172 U/L (16-77) H Serum Test, Qualitative NEGATIVE (NEGATIVE) Labs Reviewed?: Yes MDM MDM: The patient is a 29-year-old female with no significant past medical history presenting to the emergency department for evaluation of nausea vomiting and diffuse abdominal pain that started yesterday after she ate fish. No other symptoms reported. Patient denies being . She reports taking 40 mg of Pepcid yesterday which temporarily improved her symptoms. Initial vital signs are stable. On physical examination the patient was in no acute distress. Patient was afebrile and nontoxic appearing. Abdominal examination is unremarkable. Abdominal workup was initiated. CBC shows no leukocytosis. Chemistries reveal slight hypokalemia with a potassium of 3.1 the remainder of her blood work is unremarkable. Symptoms most likely related to gastroenteritis. Patient was remained stable in the ER. She was given 1 L of IV fluids, Zofran, and Pepcid IV and reports feeling significantly improved. Potassium was replaced in the emergency department with 50 mg of effervescent p.o.. The patient will be discharged home with a diagnosis of viral gastroenteritis. She was advised to f ollow up with your PCP in 2-3 days for repeat evaluation. Return to the ER for any new or worsening symptoms Differential diagnosis: Viral gastroenteritis, pancreatitis, food poisoning There are no social concerns with this patient. Prescription drug management Prescriptions will include: None Medical management and examination interpretation discussions were had by me with other qualified healthcare professionals as indicated for the patient's care. ED Course Orders Procedure Category Date Status Time Urinalysis Profile LAB 02/19/25 Complete 14:50 Cbc With Differential LAB 02/19/25 Complete 15:05 Basic Metabolic Panel LAB 02/19/25 Complete 15:05 Hepatic Function Panel LAB 02/19/25 Complete 15:05 Lipase LAB 02/19/25 Complete 15:05 Testing, LAB 02/19/25 Complete Serum Hcg 15:05 0.9%Nacl 1000ml (Ns PHA 02/19/25 Complete 1000ml) 15:30 Ondansetron 4mg Inj PHA 02/19/25 Complete (Zofran 4mg Inj) 15:30 Famotidine 20mg Vial PHA 02/19/25 Complete (Pepcid 20mg Vial) 15:30 Potassium Bicarb/Cit PHA 02/19/25 Complete Ac 25meq (K-Lyte Ta 17:00 Current Medications Medications (Trade) Dose Ordered Sig/Mitchell Route PRN Reason Start Time Stop Time Status Last Admin Dose Admin Famotidine (Pepcid 20mg Vial) 20 mg ONCE ONCE IV 02/19/25 15:30 02/19/25 15:31 DC 02/19/25 15:16 Ondansetron HCl (zoFRAN 4MG INJ) 4 mg ONCE ONCE IVP 02/19/25 15:30 02/19/25 15:31 DC 02/19/25 15:16 Potassium Bicarbonate (K-Lyte Tablet Eff 25 Meq Tablet.eff) 50 meq ONCE ONCE PO 02/19/25 17:00 02/19/25 17:01 DC 02/19/25 17:04 Sodium Chloride 1,000 ml @ 0 mls/hr ONCE ONCE IV 02/19/25 15:30 02/19/25 15:31 DC 02/19/25 15:16 Vital Signs Date Time Temp Pulse Resp B/P (MAP) Pulse Ox O2 Delivery O2 Flow Rate FiO2 02/19/25 17:13 98.8 78 20 122/78 99 Room Air* 0 21 02/19/25 14:30 97.2 83 16 140/86 100 Room Air 0 DX & DISP Disposition: Discharge Departure Impression: Primary Impression: Viral gastroenteritis Additional Impression: Hypokalemia Condition: Stable Additional Instructions: Your blood work today shows a slightly low potassium level. This could be contributing to your overall feeling of unwellness. The remainder of your blood work is unremarkable. Your symptoms are most likely related to something you ate. Please follow up with your primary care doctor in 2-3 days for repeat evaluation. Referrals: JULI ALMENDAREZ (PCP) Time of Disposition: 16:50 I have reviewed the case, and I agree with, Diagnosis and Plan I performed the substantive portion of the visit. I have reviewed and personally made and approve the management plan that is documented in the note by myself or the JIMBO. I acknowledge for responsibility for the patient's management plan. FRANCISCO TRUJILLO Feb 19, 2025 16:56 MARLY WRIGHT DO Feb 19, 2025 18:20
[2025-02-19] MEDS: PoTASSium BIcarbonate/CIT AC 25 MEQ TABLET.EFF PO ONE (17:04)
[2025-02-19 17:13] VITALS: BP 122/78; PULSE 78; RESP 20; TEMP 98.7; O2SAT 99
== END 2025-02-19 17:14 | disposition home or self-care (01) ==
LOC: EDH 14:27
DX: A08.4 Viral intestinal infection, unspecified (principal); E87.6 Hypokalemia; Z79.64 Long term (current) use of myelosuppressive agent; Z79.82 Long term (current) use of aspirin; Z79.899 Other long term (current) drug therapy
CPT/HCPCS: 99284; 96374; 96361; 96375; 80076; 80048; 84703; 83690; 85025; 81001; 36415; J3490; J7030; J2405

== ENCOUNTER 2025-09-10 15:39 | Emergency (ER) | payer BC ==
[~2025-09-10] VITALS: Ht 152.4 cm; Wt 84.4 kg
--- NOTE | 2025-09-10 16:01 | EKG ---
[facility] Test Date: 2025-09-10 Test Time: 15:56:07 Pat Name: JACKELYN THORNTON Department: [facility] Room: Gender: F District Ranger: [id number] : 1995 Requested By: TALISHA GREEN Order Number: [id number] Reading MD: Fernando Montez Measurements Intervals Ashley Rate: 103 P: 38 TN: 129 QRS: 28 QRSD: 75 T: 29 QT: 323 QTc: 424 Interpretive Statements Sinus tachycardia Low voltage, precordial leads No previous ECG available for comparison Electronically Signed On 09-11-2025 11:12:59 BUSINESS SERVICES ANALYST by Fernando Montez Please click the below link to view image of tracing.
[2025-09-10 16:21] LABS: IMMATURE GRANULOCYTE ABSOLUTE 0.01 K/uL (0-1); NUCLEATED RED BLOOD CELLS 0.0 % (0.0-0.19); PLATELET COUNT (AUTO) 320 K/uL (130-400); RED BLOOD CELL COUNT(AUTO) 4.66 MIL/uL (4.00-5.50); RED CELL DISTRIBUTION WIDTH 12.5 % (11.0-15.5); WHITE BLOOD COUNT (AUTO) 7.1 K/uL (4.8-10.8)
[2025-09-10 16:24] LABS: CREATININE 0.8 mg/dL (0.5-1.0); GLOMERULAR FILTR. RATE CALC 101.0 mL/min (>90); GLUCOSE,RANDOM 94.0 mg/dL (70-105); SODIUM SERUM 136.0 mmol/L (136-145); UREA NITROGEN, BLOOD 12.0 mg/dL (7-18)
[2025-09-10 16:28] LABS: ASPARTATE AMINOTRANSFERASE 23.0 U/L (10-37); CREATINE KINASE, TOTAL 43.0 U/L (21-232); TOTAL PROTEIN, SERUM 7.7 g/dL (6.0-8.3)
[2025-09-10] MEDS: 0.9%NACL 1000ML 1,000 ML IV ONE (16:32)
[2025-09-10 16:37] LABS: APPEARANCE,URINE CLOUDY (CLEAR); GLUCOSE, URINE (UA) NEGATIVE (NEGATIVE); LEUKOCYTE ESTERASE ,URINE NEGATIVE Leu/uL (NEGATIVE); NITRATE,URINE NEGATIVE (NEGATIVE); OCCULT BLOOD,URINE SMALL (NEGATIVE)
--- NOTE | 2025-09-10 16:42 | ERN ---
General Chief Complaint: Nausea,Vomiting,Diarrhea Stated Complaint: N/V, ABD CRAMPING Time Seen by MD: 15:44 Source: patient History of Present Illness Initial Comments PATIENT IS A 40-YEAR-OLD FEMALE COMING IN COMPLAINING OF ABDOMINAL DISCOMFORT. PATIENT STATES HE ATE SOME FOOD THAT COULD HAVE UPSET HER STOMACH. SHE IS HERE FOR FURTHER EVALUATION. SYMPTOMS BEGAN YESTERDAY. Allergies: Coded Allergies: No Known Drug Allergies (Unverified Allergy, Unknown, 11/08/20) Home Meds Active Scripts Nitrofurantoin/Nitrofuran Mac (Macrobid) 100 Mg Cap, 1 CAP PO BID for 7 Days, #14 CAP 0 Refills Prov:FRANCISCO TRUJILLO 09/10/24 Omeprazole (Omeprazole) 40 Mg Capsule.dr, 40 MG PO DAILY, #30 CAP Prov:LEIF JIMP 07/17/24 Sucralfate (Carafate) 1 Gram Tablet, 1 GM PO ACHS for 10 Days, #40 TAB Prov:LEIF JIMP 07/17/24 Fluticasone Propionate (Flonase Allergy Relief) 50 Mcg/Actuation [place].susp, 1 INH NS BID PRN for allergy, #1 INHALER 0 Refills Prov:SELINA TREJO MD 05/06/24 Phenazopyridine HCl (Pyridium) 200 Mg Tab, 200 MG PO TIDPC PRN for PAIN, #10 TAB 0 Refills TAKE WITH FOOD TO PREVENT STOMACH UPSET. Prov:SELINA TREJO MD 03/10/23 Nitrofurantoin/Nitrofuran Mac (Macrobid) 100 Mg Cap, 1 CAP PO BID for 7 Days, #14 CAP 0 Refills Prov:SELINA TREJO MD 03/10/23 Butalb/Acetaminophen/Caffeine (Fioricet) 1 Tab Tab, 1 TAB PO QID, #30 TAB Prov:DESIRAE VELARDE MD 04/20/22 Ondansetron (Ondansetron Odt) 4 Mg Tab.rapdis, 4 MG PO TID, #21 TAB Prov:DANNY PRESSLEY 03/22/22 Reported Medications Lidocaine (Lidoderm Patch 5%) 5 % Patch, 1 PATCH TP DAILY for 30 Days, #30 PATCH 0 Refills may wear up to 12 hours 09/24/24 Cholecalciferol (Vitamin D3) (Vitamin D3) 10 Mcg (400 Unit) Capsule, 1 CAP PO DAILY for 30 Days, #30 CAP 0 Refills 09/24/24 Oxybutynin Chloride (Oxybutynin Chloride ER) 10 Mg Tab.er.24, 1 TAB PO DAILY for 30 Days, #30 TAB 0 Refills 09/24/24 Fish Oil/Borage/Flax/Om3,6,9#1 ([place] 3-6-9 1,200 mg Softgel) 1,200 Mg Capsule, 1 CAP PO DAILY for 30 Days, #30 CAP 0 Refills 09/24/24 Acetaminophen (Tylenol) 500 Mg Tab, 1 TAB PO Q6HPRN PRN for pain or fever for 15 Days, #60 TAB 0 Refills 09/24/24 Hydroxyurea (Hydroxyurea) 500 Mg Capsule, 1 CAP PO DAILY for 30 Days, #30 CAP 0 Refills 09/24/24 Multivitamin (Multivitamin) 1 Each Tablet, 1 TAB PO DAILY for 30 Days, #30 TAB 0 Refills 09/24/24 Atorvastatin Calcium (Atorvastatin Calcium) 20 Mg Tablet, 1 TAB PO DAILY for 30 Days, #30 TAB 0 Refills 09/24/24 Aspirin (Aspirin EC) 81 Mg Tablet.dr, 1 TAB PO DAILY for 30 Days, #30 TAB 0 Refills 09/24/24 Amlodipine Besylate (Amlodipine Besylate) 2.5 Mg Tablet, 1 TAB PO DAILY for 30 Days, #30 TAB 0 Refills 09/24/24 Past Medical History Past Medical History: GERD, UTI Medical History Other: VERTIGO Past Surgical History: None Family History Family History: Negative Social History Social History: Negative, Lives with family Female( History) History: Not Applicable LMP: Aug 29, 2025 : 0 Para: 0 Aborts: 0 ROS Dictation CONSTITUTIONAL: NO CHILLS, NO FEVER, NO WEAKNESS, NO DIAPHORESIS, NO MALAISE. HEAD/FACE: NO SIGNS OF TRAUMA. EENT: NO EYE PAIN, NO BLURRED VISION, NO TEARING, NO DOUBLE VISION, NO EAR PAIN, NO EAR DISCHARGE, NO NOSE PAIN, NO NASAL CONGESTION, NO THROAT PAIN, NO THROAT SWELLING, NO MOUTH PAIN. RESPIRATORY: NO COUGH, NO ORTHOPNEA, NO SOB, NO STRIDOR, NO WHEEZING. CARDIOVASCULAR: NO CHEST PAIN, NO EDEMA, NO PALPITATIONS, NO SYNCOPE. GASTROINTESTINAL/ABDOMINAL: NO ABDOMINAL PAIN, NO CONSTIPATION, NO DIARRHEA, NO NAUSEA, NO VOMITING. GENITOURINARY: NO ABNORMAL DISCHARGE, NO DYSURIA, NO FREQUENT URINATION, NO HEMATURIA. NO COMPLAINTS OF PAIN IN THE GENITALS. MUSCULOSKELETAL: NO BACK PAIN, NO GOUT, NO JOINT PAIN, NO JOINT SWELLING, NO MUSCLE PAIN, NO MUSCLE STIFFNESS, NO NECK PAIN. INTEGUMENTARY: NO CHANGE IN COLOR, NO CHANGE IN HAIR/NAILS, NO DRYNESS, NO LESION, NO LUMPS, NO RASH. NEUROLOGICAL/PSYCH: NO ANXIETY, NOT DEPRESSED, NO EMOTIONAL PROBLEM, NO HEADACHE, NO NUMBNESS, NO PRE-EXISTING DEFICIT, NO HISTORY OF SEIZURES, NO TREMORS, NO WEAKNESS. HEMATOLOGIC/LYMPHATIC: NOT ANEMIC, NO HISTORY OF BLOOD CLOTS, NO APPARENT BLEEDING, NO BRUISING, GLANDS NOT SWOLLEN. ALL SYSTEMS NEGATIVE, EXCEPT NOTED. Physical Exam Physical Exam Dictation VITAL SIGNS: REVIEWED. GENERAL APPEARANCE: ALERT, ORIENTED X3, NO ACUTE DISTRESS, OBESE. HEAD AND FACE: NON-TRAUMATIC. EYES: PERRL, PINK CONJUNCTIVAS, EYELID NO TRAUMA, ANTERIOR CHAMBER CLEAR. EARS: PINNAS INTACT AND NO SIGNS OF TRAUMA OR ERYTHEMA. EAR CANALS CLEAR AND NO DISCHARGE. TMS NO ERYTHEMA. NOSE: NO DISCHARGE, NO BLEEDING. OROPHARYNX: MOUTH NORMAL, TEETH NO CARIES, TONGUE PINK. PHARYNX CLEAR, NO ERYTHEMA. TONSILS NO EXUDATES, NO ABSCESSES NOTED. MUCOUS MEMBRANE MOIST. NECK: SUPPLE, NON-TENDER, NO THYROMEGALY, NO MASSES, NO JVD, NO BRUITS. BREAST: DEFERRED. CHEST: NO TENDERNESS, NO CREPITUS, NO PARADOXICAL MOVEMENT, NO RETRACTIONS. LUNGS: CLEAR, WELL-VENTILATED, SYMMETRIC, NO RALES, NO WHEEZING, NO RHONCHI, NO STRIDOR, GOOD BREATH SOUNDS BILATERALLY. HEART: REGULAR RATE, REGULAR RHYTHM, NO MURMUR, NO GALLOPS. VASCULAR: NO PERIPHERAL EDEMA. ABDOMEN: SOFT, POSITIVE BOWEL SOUNDS, NONDISTENDED, NO GUARDING, NONTENDER, NO REBOUND, NO MASSES NO HEPATOMEGALY, NO SPLENOMEGALY, NO HAGEN'S SIGN, NO HERNIAS. RECTAL: DEFERRED. GENITAL: DEFERRED. NEUROLOGICAL: NORMAL SPEECH, GROSS MOTOR FUNCTION INTACT, GROSS SENSORY FUNCTION INTACT. MUSCULOSKELETAL: NECK NONTENDER, FULL RANGE OF MOTION, BACK NONTENDER, FULL RANGE OF MOTION. EXTREMITIES: NONTENDER, FULL RANGE OF MOTION. SKIN: COLOR PINK, DRY, NO TURGOR, NO RASH, NO LACERATIONS, NO ABRASIONS, NO CONTUSIONS. LYMPHATICS: DEFERRED. Results Laboratory and Microbiology Lab and Micro Result Laboratory Tests Test 09/10/25 16:07 09/10/25 16:30 White Blood Count 7.1 K/uL (4.8-10.8) Red Blood Count 4.66 MIL/uL (4.00-5.50) Hemoglobin 13.5 g/dL (12.0-16.0) Hematocrit 41.2 % (36-48) Mean Corpuscular Volume 88.4 fL (79-99) Mean Corpuscular Hemoglobin 29.0 pg (27.0-33.0) Mean Corpuscular Hemoglobin Concent 32.8 g/dL (32.0-36.0) Red Cell Distribution Width 12.5 % (11.0-15.5) Platelet Count 320 K/uL (130-400) Mean Platelet Volume 9.6 fL (7.5-10.5) Immature Granulocyte % (Auto) 0.1 % (0-1) Neutrophils (%) (Auto) 83.3 % (40.0-77.0) H Lymphocytes (%) (Auto) 13.3 % (21.0-51.0) L Monocytes (%) (Auto) 2.4 % (3.0-13.0) L Eosinophils (%) (Auto) 0.8 % (0.0-8.0) Basophils (%) (Auto) 0.1 % (0.0-5.0) Neutrophils # (Auto) 5.9 K/uL (1.8-7.7) Lymphocytes # (Auto) 0.9 K/uL (1.0-4.8) L Monocytes # (Auto) 0.2 K/uL (0.1-1.0) Eosinophils # (Auto) 0.06 K/uL (0.00-0.70) Basophils # (Auto) 0.01 K/uL (0.00-0.20) Absolute Immature Granulocyte (auto 0.01 K/uL (0-1) Nucleated Red Blood Cells 0.0 % (0.0-0.19) Sodium Level 136 mmol/L (136-145) Potassium Level 3.5 mmol/L (3.5-5.1) Chloride Level 99 mmol/L (101-111) L Carbon Dioxide Level 24 mmol/L (21-32) Blood Urea Nitrogen 12 mg/dL (7-18) Creatinine 0.8 mg/dL (0.5-1.0) Glomerular Filtration Rate Calc 101 mL/min (>90) Random Glucose 94 mg/dL (70-105) Total Calcium 8.4 mg/dL (8.5-10.1) L Total Bilirubin 0.6 mg/dL (0.2-1.0) Aspartate Amino Transf (AST/SGOT) 23 U/L (10-37) Alanine Aminotransferase (ALT/SGPT) 44 U/L (12-78) Alkaline Phosphatase 49 U/L (50-136) L Total Creatine Kinase 43 U/L (21-232) Troponin I High Sensitivity < 4 ng/L (4-50) L Total Protein 7.7 g/dL (6.0-8.3) Albumin 3.8 g/dL (3.5-5.0) Lipase 56 U/L (16-77) Urine Color YELLOW (YELLOW) Urine Appearance CLOUDY (CLEAR) H Urine pH 5.5 (5.0-8.0) Urine Specific [place] 1.026 (1.001-1.031) Urine Protein NEGATIVE mg/dL (NEGATIVE) Urine Glucose (UA) NEGATIVE mg/dL (NEGATIVE) Urine Ketones 10 mg/dL (NEGATIVE) H Urine Occult Blood SMALL (NEGATIVE) H Urine Nitrate NEGATIVE (NEGATIVE) Urine Bilirubin NEGATIVE mg/dL (NEGATIVE) Urine Urobilinogen 0.2 mg/dL (0.2-1.0) Urine Leukocyte Esterase NEGATIVE [place]/uL Urine RBC 6-10 /HPF (0-1) H Urine WBC 6-10 /HPF (0-1) H Urine Squamous Epithelial Cells FEW /HPF (0-2) Urine Bacteria FEW /HPF (None Seen) Urine HCG, Qualitative NEGATIVE (NEGATIVE) Labs Reviewed?: Yes EKG/XRAY/US/CT/MRI EKG Comment 11/2024 TIME 3:56 P.M VENTRICULAR RATE [address] WAVE ELEVATION OR DEPRESSION MDM MDM: DIFFERENTIAL DIAGNOSIS: APPENDICITIS, ABDOMINAL PAIN, GASTRITIS, RATIONALE: TESTS CONSIDERED AND ORDERED SECONDARY TO SHARED DECISION MAKING INCLUDE: PREVIOUS OUTSIDE RECORDS REVIEWED: OLD ER VISITS. RISK OF COMPLICATION AND/OR MORBIDITY OR MORTALITY OF PATIENT MANAGEMENT: NONE MEDICATIONS-PER MEDICATION RECONCILIATION NEED FOR HOSPITALIZATION: PATIENT DOES NOT MEET CRITERIA FOR HOSPITALIZATION. NEED FOR EMERGENCY MAJOR/MINOR SURGERY: NO THERE ARE NO SOCIAL CONCERNS WITH THIS PATIENT. PRESCRIPTION DRUG MANAGEMENT PRESCRIPTIONS WILL INCLUDE SYMPTOMATIC CARE PATIENT'S PRIOR EXTERNAL MEDICAL RECORDS FROM OTHER ER VISITS WERE REVIEWED BY ME INDICATED. PRIOR TESTING AND RESULTS FROM PREVIOUS VISITS WERE REVIEWED. PRIOR TESTS WERE TAKEN INTO ACCOUNT WITH MEDICAL DECISION MAKING AND RESOURCE UTILIZATION, INDEPENDENT HISTORIAN/HISTORIANS WERE USED TO OBTAIN COMPLETE MEDICAL HISTORY. I INDEPENDENTLY INTERPRETED THE TEST THAT WERE PERFORMED, RESULTS WERE REVIEWED BY ME AND CONSIDERED FINDINGS ON RADIOLOGY IF ORDERED. MEDICAL MANAGEMENT AND EXAMINATION INTERPRETATION DISCUSSIONS WERE HAD BY ME WITH OTHER QUALIFIED HEALTHCARE PROFESSIONALS INDICATED FOR THE PATIENT'S CARE. ED Course Orders Procedure Category Date Status Time Cbc With Differential LAB 09/10/25 Complete 15:45 Comprehensive LAB 09/10/25 Complete Metabolic Panel 15:45 Troponin I High LAB 09/10/25 Complete Sensitivity 15:45 Urinalysis Profile LAB 09/10/25 Complete 15:45 12 Lead Ekg Tracing- EKG 09/10/25 Complete Technical 15:45 0.9%Nacl 1000ml (Ns PHA 09/10/25 Complete 1000ml) 16:00 Ondansetron 4mg Inj PHA 09/10/25 Complete (Zofran 4mg Inj) 16:00 Pantoprazole 40mg Inj PHA 09/10/25 Complete (Protonix 40mg Inj 16:00 Creatine Kinase, Total LAB 09/10/25 Complete 15:45 Lipase LAB 09/10/25 Complete 15:45 Culture Urine MARCUS 09/10/25 In Process 16:58 Ct Abdomen/Pelvis CT 09/10/25 Resulted W/Contrast 17:03 ,Urine Test LAB 09/10/25 Complete 17:13 Iohexol (Omnipaque) PHA 09/10/25 Complete 17:53 Current Medications Medications (Trade) Dose Ordered Sig/Mitchell Route PRN Reason Start Time Stop Time Status Last Admin Dose Admin Iohexol (Omnipaque) 75 ml STK-MED ONCE IV 09/10/25 17:53 09/10/25 17:53 DC Ondansetron HCl (zoFRAN 4MG INJ) 4 mg ONCE ONCE IVP 09/10/25 16:00 09/10/25 16:01 DC 09/10/25 16:33 Pantoprazole Sodium (PROTonix 40MG INJ) 40 mg ONCE ONCE IVP 09/10/25 16:00 09/10/25 16:01 DC 09/10/25 16:33 Sodium Chloride 1,000 ml @ 0 mls/hr ONCE ONCE IV 09/10/25 16:00 09/10/25 16:01 DC 09/10/25 16:32 Vital Signs Date Time Temp Pulse Resp B/P (MAP) Pulse Ox O2 Delivery O2 Flow Rate FiO2 09/10/25 19:28 99.0 101 16 114/70 100 Room Air* 0 21 09/10/25 18:15 98.8 82 16 128/74 99 Room Air* 0 21 09/10/25 16:17 99.0 105 16 132/76 99 Room Air* 0 21 09/10/25 15:41 99.0 120 16 134/73 99 Room Air 0 Patient is seen and evaluated by me. Patient is a 30-year-old female with a past medical history remarkable weight is evaluating for abdominal pain. She endorses a history of heating pad food yesterday. States that she has a follow up with GI for an endoscopy in the future. I reviewed all labs and imaging with the patient. She was noted to have a diverticulosis on CT scan. At this time there was no need for admissions. She is well-appearing no acute distress vital signs stable. We will discharge home on anticipatory guidelines. All questions answered at this time. DX & DISP Disposition: Discharge Departure Impression: Primary Impression: Acute gastritis Additional Impressions: Vomiting, Diverticulosis Condition: Stable Scripts Ondansetron (Ondansetron Odt) 4 Mg Tab.rapdis 1 TAB PO Q6HPRN PRN for nausea/vomiting for 4 Days, #16 TAB 0 Refills Prov: PARIS BERRIOS MD 09/10/25 Referrals: JO-ANN ANNA MD (PCP) Time of Disposition: 20:00 TALISHA GREEN MD Sep 10, 2025 16:42 PARIS BERRIOS MD Sep 10, 2025 19:54
[2025-09-10 16:50] LABS: ADD UA MICROSCOPIC YES
[2025-09-10 16:53] LABS: SQUAMOUS EPITHELIAL CELL,UR FEW /HPF (0-2)
--- NOTE | 2025-09-10 17:14 | NUR ---
PENDING TEST RESULTS FOR CT EXAM.
[2025-09-10] MEDS ORDERED: IOHEXOL-350 75 ML VIAL IV ONE (17:53)
--- NOTE | 2025-09-10 19:12 | HMCIMG ---
EXAM: CT Abdomen and Pelvis with IV Contrast. CLINICAL HISTORY: Right lower quadrant pain. TECHNIQUE: Axial computed tomography images of the abdomen and pelvis with intravenous contrast. CONTRAST: With intravenous contrast. COMPARISON: None provided. FINDINGS: LUNG BASES: The lung bases appear clear. No pleural effusions are seen. LIVER: Unremarkable. GALLBLADDER AND BILE DUCTS: The gallbladder appears within normal limits. No radiopaque gallstones are seen. No biliary ductal dilatation is evident. PANCREAS: Unremarkable. SPLEEN: Unremarkable. ADRENAL GLANDS: Unremarkable. KIDNEYS, URETERS, AND BLADDER: The kidneys appear within normal limits. There is no hydronephrosis or hydroureter. No urinary calculi are seen. A 5 x 5 mm simple cyst is noted in the mid pole of the right kidney. STOMACH AND BOWEL: Unremarkable appearance of the stomach and bowel. No evidence of bowel obstruction. No findings suggesting enteritis or colitis. Mild diverticulosis of the sigmoid colon without diverticulitis. Mild fecal loading of the colon, possibly due to constipation. APPENDIX: No evidence of acute appendicitis on CT examination. PERITONEUM: No free fluid or free air. LYMPH NODES: No lymphadenopathy is evident. REPRODUCTIVE: Unremarkable as visualized. VASCULATURE: No evidence of abdominal aortic aneurysm. BONES: No aggressive-appearing osseous lesion. No acute osseous pathology evident. IMPRESSION: No acute intra-abdominal or pelvic abnormality. Mild sigmoid diverticulosis without diverticulitis. Mild fecal loading of the colon, possibly due to constipation. /Benedicta
[2025-09-10] MEDS ORDERED: ONDA-243 PO (19:59)
[2025-09-10 20:35] VITALS: BP 107/77; PULSE 90; RESP 16; TEMP 98.9; O2SAT 100
== END 2025-09-10 20:48 | disposition home or self-care (01) ==
LOC: EDH 15:39
DX: K29.00 Acute gastritis without bleeding (principal); K57.30 Diverticulosis of large intestine without perforation or abscess without bleeding; R11.10 Vomiting, unspecified; Z79.82 Long term (current) use of aspirin; Z79.64 Long term (current) use of myelosuppressive agent; Z79.899 Other long term (current) drug therapy; Z87.440 Personal history of urinary (tract) infections
CPT/HCPCS: 99284; 74177; 96374; 96375; 82550; 84484; 80053; 83690; 85025; 87086; 81001; 81025; 36415; 93005; J7030; J2405; J2470; Q9967